=== PATIENT | female | born 1965 | race Caucasian/White ===

== ENCOUNTER 2018-06-26 | Observation (INO) | payer OTHER ==
[2018-06-26 00:26] VITALS: BMI 26.2
[2018-06-26] MEDS ORDERED: SODIUM CHLORIDE 0.9% 500 ML INFUS.BAG IV ONE (01:35)
[2018-06-26] MEDS ORDERED: ACETAMINOPHEN 1000 MG/100 ML VIAL (NON FORMULARY) IVPB ONE (01:35)
[2018-06-26] MEDS ORDERED: ONDANSETRON 4 MG/2 ML VIAL IVPUSH ONE (01:35)
--- NOTE | 2018-06-26 01:36 | PDOC ---
History of Present Illness <Christopher Banks - Last Filed: 06/26/18 07:09> - General History Source: Patient Exam Limitations: No Limitations - History of Present Illness Initial Comments: 06/26/18 01:36 This is a 53 YOF with h/o appendectomy who p/w 3 days intermittent epigastric pain worse with eating and radiating to her back, as well as full-body aches. The pain worsens with eating and she has lost her appetite over the past day. She additionally began having NBNB vomiting over the past day and has had 3-5 episodes. She denies f/c, d/c, black/bloody/white stool, dysuria, hematuria, vaginal bleeding or discharge, or other symptoms. She denies ever having her gallbladder surgically removed. <Mary Leggett - Last Filed: 06/28/18 17:49> - General Chief Complaint: Pain, Acute Stated Complaint: ABD PAIN Time Seen by Provider: 06/26/18 01:24 Past History <Christopher Banks - Last Filed: 06/26/18 07:09> - Past Medical History COPD: No Thyroid Disease: No - Suicide/Smoking/Psychosocial Hx Smoking History: Never smoked Have you smoked in the past 12 months: No Information on smoking cessation initiated: No Hx Alcohol Use: No Drug/Substance Use Hx: No Substance Use Type: None <Mary Leggett - Last Filed: 06/28/18 17:49> - Past Medical History Allergies/Adverse Reactions: Allergies Allergy/AdvReac Type Severity Reaction Status Date / Time No Known Allergies Allergy Verified 06/26/18 00:25 Home Medications: Ambulatory Orders NK [No Known Home Medication] 06/26/18 Review of Systems - Review of Systems Able to Perform ROS?: Yes Constitutional: Yes: Malaise. No: Chills, Fever, Unexplained wgt Loss HEENTM: No: Nose Congestion, Throat Pain Respiratory: No: Cough, Shortness of Breath Cardiac (ROS): No: Chest Pain, Palpitations ABD/GI: Yes: Nausea, Poor Appetite, Vomiting, Other (abdominal pain). No: Constipated, Diarrhea : No: Burning, Dysuria Musculoskeletal: Yes: Back Pain. No: Neck Pain Integumentary: No: Bruising, Rash Neurological: No: Headache, Numbness, Tingling, Weakness, Dizziness Endocrine: No: Unexplained Weight Gain, Unexplained Weight Loss <Mary Leggett - Last Filed: 06/28/18 17:49> *Physical Exam - Vital Signs Last Vital Signs Temp Pulse Resp BP Pulse Ox 97.9 F 72 20 147/75 100 06/26/18 00:25 06/26/18 00:25 06/26/18 00:06/26/18 00:06/26/18 00:25 <Christopher Banks - Last Filed: 06/26/18 07:09> - Vital Signs Last Vital Signs Temp Pulse Resp BP Pulse Ox 97.9 F 72 20 147/75 100 06/26/18 00:25 06/26/18 00:06/26/18 00:06/26/18 00:25 06/26/18 00:25 - Physical Exam General Appearance: Yes: Nourished, Appropriately Dressed, Other (a bit uncomfortable appearing, Mohawk speaking and answers questions appropriately, initially actively vomiting and dry heaving just prior to my examination). No: Apparent Distress HEENT: positive: EOMI, TRISTIAN, Normal ENT Inspection, Normal Voice, Hearing Grossly Normal. negative: Scleral Icterus (R), Scleral Icterus (L), Nasal Congestion Neck: positive: Trachea midline, Supple. negative: Tender, Rigid Respiratory/Chest: positive: Lungs Clear, Normal Breath Sounds. negative: Chest Tender, Respiratory Distress, Crackles, Rhonchi, Stridor, Wheezing Cardiovascular: positive: Regular Rhythm, Regular Rate, S1, S2. negative: Edema , JVD, Murmur Gastrointestinal/Abdominal: positive: Normal Bowel Sounds, Tender (mild epigastric ttp, no additional abdominal ttp, negative Farfan's, no ttp McBurney' s point), Soft, Other (laparoscopy scars present which are old and well-healed) . negative: Organomegaly, Pulsatile Mass, Guarding Musculoskeletal: positive: Normal Inspection. negative: Decreased Range of Motion, Vertebral Tenderness Extremity: positive: Normal Capillary Refill, Normal Inspection, Normal Range of Motion. negative: Tender, Cyanosis Integumentary: positive: Normal Color, Dry, Warm. 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 negative: EOM Palsy, Facial Droop, Numbness, Sensory Deficit, Confused, Disoriented <Mary Leggett - Last Filed: 06/28/18 17:49> Heart Score/ECG Review #1 06/26/18 01:45 Sinus rhythm, rate of 79, normal axis and intervals, no ischemic ST-T changes <Mary Leggett - Last Filed: 06/28/18 17:49> ED Treatment Course - LABORATORY CBC & Chemistry Diagram: 06/26/18 02:05 06/26/18 02:05 - ADDITIONAL ORDERS Additional order review: 06/26/18 02:05 RBC 4.75 MCV 84.4 MCHC 34.8 RDW 13.0 MPV 7.1 L Neutrophils % 77.5 Lymphocytes % 15.2 Monocytes % 6.4 Eosinophils % 0.3 Basophils % 0.6 - RADIOLOGY Radiograph Interpretation: 06/26/18 02:37 EXAM: ULTRASOUND ABDOMEN INCOMPLETE Unremarkable liver, right kidney and visualized aorta and pancreas. Cholecystectomy. Normal common duct diameter, 7 mm. Read by: Carley Munoz M.D. 06/26/18 07:10 EXAM: CT ABDOMEN AND PELVIS WITH CONTRAST Endometrial stripe thickness 8 mm, correlate with menopausal status. Leiomyomatous uterus. No bowel obstruction, colitis, diverticulitis, free fluid or free air. Normal appendix. Unremarkable pancreas and kidneys. Cholecystectomy. Read by: Carley Munoz M.D. - Medications Given in the ED: ED Medications Discontinued Medications Generic Name Dose Route Start Last Admin Trade Name Cecilia PRN Reason Stop Dose Admin Acetaminophen 1,000 mg 06/26/18 01:35 06/26/18 02:00 Ofirmev Injection - IVPB 06/26/18 01:36 1,000 mg ONCE ONE Administration Ondansetron HCl 8 mg 06/26/18 01:35 06/26/18 02:00 Zofran Injection IVPUSH 06/26/18 01:36 8 mg ONCE ONE Administration Sodium Chloride 1,000 ml 06/26/18 01:35 06/26/18 02:00 Normal Saline - IV 06/26/18 01:36 1,000 ml ONCE ONE Administration <Christopher Banks - Last Filed: 06/26/18 07:09> - LABORATORY CBC & Chemistry Diagram: 06/27/18 07:00 06/27/18 07:00 <Mary Leggett - Last Filed: 06/28/18 17:49> Medical Decision Making - Medical Decision Making Adult Pt p/w epigastric abdominal pain. Initial Vital Signs Temp Pulse Resp BP Pulse Ox 97.9 F 72 20 147/75 100 06/26/18 00:25 06/26/18 00:25 06/26/18 00:25 06/26/18 00:25 06/26/18 00:25 Exam: As noted in Physical Exam section. DDX IBNLT: cholecystitis, choledocholithiasis, cholangitis, pancreatitis, appendicitis, gastritis, PUD, colitis, AAA/AD, ACS, renal stone, SBO, mesenteric /bowel ischemia, bowel perforation, constipation, gas, etc W/U ordered: CBCD CMP ipase Troponin EKG RUQ US UA UCx TX ordered: [facility] [place] [facility] Zofran IVF EKG: Reviewed; results as noted in ECG Review section. US/ABDOMEN US -LIMITED HISTORY PROVIDED: Epigastric pain. Real time examination of the abdomen demonstrates the following: The gallbladder has been removed. There is no evidence of intra or extrahepatic biliary duct dilatation. The liver is normal in size and texture with no intrahepatic masses seen. Hepatopedal flow is documented within the main portal vein. The pancreas is normal in size and texture with no pancreatic masses identified. The tail of the pancreas was not well visualized due to overlying bowel gas. There is no evidence of hydronephrosis or acute abnormalities of the right kidney. There is no evidence of AAA. The IVC is patent. IMPRESSION: S/P cholecystectomy, otherwise normal abdominal sonogram. Laboratory Tests 06/26/18 06/26/18 06/26/18 02:05 02:05 02:05 WBC 10.2 H RBC 4.75 Hgb 13.9 Hct 40.1 MCV 84.4 MCH 29.4 MCHC 34.8 RDW 13.0 Plt Count 290 MPV 7.1 L Absolute Neuts (auto) 7.9 Neutrophils % 77.5 Lymphocytes % 15.2 Monocytes % 6.4 Eosinophils % 0.3 Basophils % 0.6 Nucleated RBC % 0 PT with INR 11.90 INR 1.05 Sodium 141 Potassium 3.7 Chloride 106 Carbon Dioxide 27 Anion Gap 8 BUN 7 Creatinine 0.7 Creat Clearance w eGFR > 60 Random Glucose 147 H Calcium 9.2 Total Bilirubin 1.4 H AST 524 H ALT 364 H Alkaline Phosphatase 184 H Troponin I < 0.02 Total Protein 7.6 Albumin 3.8 Lipase 127 Blood Type Antibody Screen 06/26/18 02:05 WBC RBC Hgb Hct MCV MCH MCHC RDW Plt Count MPV Absolute Neuts (auto) Neutrophils % Lymphocytes % Monocytes % Eosinophils % Basophils % Nucleated RBC % PT with INR INR Sodium Potassium Chloride Carbon Dioxide Anion Gap BUN Creatinine Creat Clearance w eGFR Random Glucose Calcium Total Bilirubin AST ALT Alkaline Phosphatase Troponin I Total Protein Albumin Lipase Blood Type O POSITIVE Antibody Screen Negative Reassessment: Patient states pain improved but still residual. Repeat exam with mild epigastric ttp without guarding/rebound. 06/26/18 05:[address] availability for CT A/P with IV contrast. CT/ABDOMEN PELVIS CT WITH CONTR HISTORY PROVIDED: Abdominal pain, elevated liver function tests. Sequential axial images were obtained from the domes of the diaphragms through the symphysis pubis following the administration of intravenous contrast material. The lung bases are clear. The liver, spleen, pancreas, adrenal glands and kidneys demonstrate no significant abnormalities. The gallbladder has been removed. There is no evidence of intra-abdominal or retroperitoneal lymphadenopathy or fluid collections. There is no evidence of pneumoperitoneum, bowel obstruction or intra-abdominal abscess. There is no CT evidence of acute appendicitis or diverticulitis. Examination of the pelvis demonstrates no evidence of pelvic masses, fluid collections or lymphadenopathy. The uterus is retroverted and bulky in appearance consistent with leiomyomata. There is also mild prominence of the endometrium. A follow-up pelvic sonogram may be warranted, if clinically indicated. There is no evidence of acute bony abnormalities. IMPRESSION: Fibroid uterus with prominent endometrium, otherwise normal CT scan of the abdomen and pelvis with no evidence of acute pathology. Please see above discussion. 06/26/18 07:37 The Pt is unsafe for discharge at this time. They require further hospital observation, workup, and treatment. Microblog sent to [facility] for admission. Spoke with Diaz Jacobo, in agreement Pt to be placed in Obs M/S. Decision to Admit order placed to admitting team covering attending Dr. Nguyen. <Mary Leggett - Last Filed: 06/28/18 17:49> *DC/Admit/Observation/Transfer - Attestations Scribe Attestion: 06/26/18 02:37 Documentation prepared by Christopher Banks, acting as medical assistant cardiology for Nicolas De La Fuente MD. <Christopher Banks - Last Filed: 06/26/18 07:09> - Discharge Dispostion Decision to Admit order: Yes <Oleksandr - Last Filed: 06/28/18 17:49> Diagnosis at time of Disposition: Transaminitis Abdominal pain Qualifiers: Abdominal location: unspecified location Qualified Code(s): R10.9 - Unspecified abdominal pain Vomiting Qualifiers: Vomiting type: unspecified Vomiting Intractability: non-intractable Nausea presence: with nausea Qualified Code(s): R11.2 - Nausea with vomiting, unspecified - Discharge Dispostion Disposition: HOME Condition at time of disposition: Stable
[2018-06-26] MEDS ORDERED: ACETAMINOPHEN INJECTION 100 ML IVPB ONE (01:46)
[2018-06-26] MEDS ORDERED: ONDANSETRON 4 MG/2 ML VIAL ONE (01:47)
[2018-06-26 02:19] LABS: BASO % 0.6 % (0-2.0); EOS % 0.3 % (0-4.5); HEMATOCRIT 40.1 % (32.4-45.2); HEMOGLOBIN 13.9 GM/dL (10.7-15.3); LYMPH % 15.2 % (8-40); MCH 29.4 pg (25.7-33.7); MCHC 34.8 g/dl (32.0-36.0); MEAN CELL VOLUME 84.4 fl (80-96); MEAN PLT VOLUME 7.1 fl (7.5-11.1); MONO % 6.4 % (3.8-10.2); NEUT % 77.5 % (42.8-82.8); PLATELET COUNT 290 K/MM3 (134-434); RBC 4.75 M/mm3 (3.60-5.2); WHITE BLOOD COUNT 10.2 K/mm3 (4.0-10.0)
[2018-06-26 02:32] LABS: INR 1.05 (0.83-1.09); PROTHROMBIN TIME (PATIENT) 11.9 SEC (9.7-13.0)
[2018-06-26] MEDS ORDERED: FAMOTIDINE 20 MG/50 ML IVPB 20 MG/50 ML MG IVPB ONE ×2 (02:40→05:06)
[2018-06-26] MEDS ORDERED: MAG HYDROX/AL HYDROX/SIMETH 30 ML UNIT-DOSE CUP PO ONE (02:41)
[2018-06-26 02:42] LABS: ALBUMIN 3.8 g/dl (3.4-5.0); ALK PHOS 184 U/L (45-117); ANION GAP 8 MMOL/L (8-16); BILIRUBIN,TOTAL 1.4 mg/dL (0.2-1); BLOOD UREA NITROGEN 7 mg/dL (7-18); CALCIUM 9.2 mg/dL (8.5-10.1); CHLORIDE 106 mmol/L (98-107); CO2 27 mmol/L (21-32); CREATININE 0.7 mg/dL (0.55-1.3); GLUCOSE,RANDOM 147 mg/dL (74-106); LIPASE 127 U/L (73-393); POTASSIUM 3.7 mmol/L (3.5-5.1); SGOT/AST 524 U/L (15-37); SGPT/ALT 364 U/L (13-61); SODIUM 141 mmol/L (136-145); TOT PROT 7.6 g/dl (6.4-8.2)
[2018-06-26] MEDS ORDERED: MAG HYDROX/AL HYDROX/SIMETH 30 ML UNIT-DOSE CUP ONE (02:49)
--- NOTE | 2018-06-26 04:42 | PDOC ---
Attending Attestation - Resident Resident Name: Mary Leggett - ED Attending Attestation I have performed the following: I have examined & evaluated the patient, The case was reviewed & discussed with the resident, I agree w/resident's findings & plan, Exceptions are as noted - HPI HPI: 06/26/18 04:37 The patient is a 53 year old female with hx appendectomy who presents to the emergency department with epigastric pain. She describes her pain as intermittent in nature radiating to her back worsening after eating with associated nausea, vomiting, and body aches. The patient also endorses decreased appetite over the past day. Denies heavy NSAID use or alcohol use. She denies recent fevers, chills, headache or dizziness. She denies recent diarrhea or constipation. She denies recent dysuria, frequency, urgency or hematuria. She denies recent chest pain or shortness of breath. Allergies: NKA - Physicial Exam PE: 06/26/18 04:36 agree with resident exam - Medical Decision Making 06/26/18 04:38 53yo F with reported hx of appendectomy (although US with surgically absent gallbladder) presents with epigastric pain. BP mildly elevated, likely 2/2 pain. Exam with epigastric and RUQ ttp. DDx includes but not limited to retained stone vs pancreatitis vs gastritis vs appendicitis. Plan -US -labs -CTAP if US neg -reassess <Nicolas De La Fuente - Last Filed: 06/26/18 04:36> Attestations - Attestations 06/26/18 06:02 Documentation prepared by Christopher Banks, acting as medical assistant for Nicolas De La Fuente MD. <Christopher Banks - Last Filed: 06/26/18 06:02>
[2018-06-26] MEDS ORDERED: ACETAMINOPHEN 325 MG TABLET (FP) PO PRN (08:06)
[2018-06-26] MEDS ORDERED: ONDANSETRON 4 MG/2 ML VIAL IVPUSH PRN (08:06)
--- NOTE | 2018-06-26 08:06 | HP ---
CHIEF COMPLAINT:Abdominal pain PCP:None HISTORY OF PRESENT ILLNESS: 53F denies PMH presents to the hospital with a 1 week history of intermittent abdominal pain. She states the pain was minor for the first few days and she mostly ignored it up until about 3 days ago when her pain started to become more severe. She endorses that the pain is waxing and waning in nature. She states the pain was then accompanied with nausea then vomiting about 3 times yesterday. She states the vomitus had undigested food and didn't have any blood or bile in it. She endorses some back pain but otherwise denies nausea vomiting fever chills chest pain leg swelling or shortness of breath. She denies urinary symptoms. Patient thought she still had her gall bladder and had her appendix taken out but imaging shows the opposite. Patient actually still has her appendix and had a cholecystectomy laparoscopically. Patient does not follow with a primary care doctor. Currently the abdominal pain and the vomiting have resolved and patient is hungry and is asking for food. LFTs found to be elevated. ER course was notable for: (1)Labs (2)IVF (3)US CTAP Recent Travel:Denies PAST MEDICAL HISTORY:Denies PAST SURGICAL HISTORY:laparoscopic choloecystectomy Social History: Smoking:Denies Alcohol:Denies Drugs: Denies Allergies No Known Allergies Allergy (Verified 06/26/18 00:25) HOME MEDICATIONS: Home Medications Medication Instructions Recorded NK [No Known Home Medication] 06/26/18 REVIEW OF SYSTEMS CONSTITUTIONAL: Absent: fever, chills, diaphoresis, generalized weakness, malaise, weight change Present: loss of appetite HEENT: Absent: rhinorrhea, nasal congestion, throat pain, throat swelling, difficulty swallowing, mouth swelling, ear pain, eye pain, visual changes CARDIOVASCULAR: Absent: chest pain, syncope, palpitations, irregular heart rate, lightheadedness , peripheral edema RESPIRATORY: Absent: cough, shortness of breath, dyspnea with exertion, orthopnea, wheezing, stridor, hemoptysis GASTROINTESTINAL: Absent: abdominal distension, diarrhea, constipation, melena, hematochezia Present:abdominal pain, nausea, vomiting GENITOURINARY: Absent: dysuria, frequency, urgency, hesitancy, hematuria, flank pain, genital pain MUSCULOSKELETAL: Absent: myalgia, arthralgia, joint swelling, back pain, neck pain SKIN: Absent: rash, itching, pallor HEMATOLOGIC/IMMUNOLOGIC: Absent: easy bleeding, easy bruising, lymphadenopathy, frequent infections ENDOCRINE: Absent: unexplained weight gain, unexplained weight loss, heat intolerance, cold intolerance NEUROLOGIC: Absent: headache, focal weakness or paresthesias, dizziness, unsteady gait, seizure, mental status changes, bladder or bowel incontinence PSYCHIATRIC: Absent: anxiety, depression, suicidal or homicidal ideation, hallucinations. PHYSICAL EXAMINATION Vital Signs - 24 hr 06/26/18 06/26/18 06/26/18 00:25 05:35 05:38 Temperature 97.9 F 97.9 F 99.1 F Pulse Rate 72 Pulse Rate [ 62 82 Left Radial] Respiratory 20 14 17 Rate Blood Pressure 147/75 Blood Pressure 132/62 143/78 [Right Arm] O2 Sat by Pulse 100 96 98 Oximetry (%) GENERAL: Awake, alert, and fully oriented, in no acute distress. HEAD: Normal with no signs of trauma. EYES: Pupils equal, round and reactive to light, extraocular movements intact EARS, NOSE, THROAT:Dry mucous membranes. LUNGS: Breath sounds equal, clear to auscultation bilaterally. No wheezes, and no crackles. No accessory muscle use. HEART: Regular rate and rhythm, normal S1 and S2 3/6 systolic murmur best heard at RUSB ABDOMEN: Soft,not distended, normoactive bowel sounds, no guarding, no rebound. Slightly tender in epigastrium. MUSCULOSKELETAL: Normal range of motion at all joints. No bony deformities or tenderness. No CVA tenderness. UPPER EXTREMITIES: warm, well-perfused. No cyanosis. No clubbing. No peripheral edema. LOWER EXTREMITIES: warm, well-perfused. No calf tenderness. No peripheral edema. NEUROLOGICAL: Cranial nerves II-XII intact. Normal speech. PSYCHIATRIC: Cooperative. Good eye contact. Appropriate mood and affect. SKIN: Warm, dry Laboratory Results - last 24 hr 06/26/18 06/26/18 06/26/18 02:05 02:05 02:05 WBC 10.2 H RBC 4.75 Hgb 13.9 Hct 40.1 MCV 84.4 MCH 29.4 MCHC 34.8 RDW 13.0 Plt Count 290 MPV 7.1 L Absolute Neuts (auto) 7.9 Neutrophils % 77.5 Lymphocytes % 15.2 Monocytes % 6.4 Eosinophils % 0.3 Basophils % 0.6 Nucleated RBC % 0 PT with INR 11.90 INR 1.05 Sodium 141 Potassium 3.7 Chloride 106 Carbon Dioxide 27 Anion Gap 8 BUN 7 Creatinine 0.7 Creat Clearance w eGFR > 60 Random Glucose 147 H Calcium 9.2 Total Bilirubin 1.4 H AST 524 H ALT 364 H Alkaline Phosphatase 184 H Troponin I < 0.02 Total Protein 7.6 Albumin 3.8 Lipase 127 Blood Type Antibody Screen 06/26/18 02:05 WBC RBC Hgb Hct MCV MCH MCHC RDW Plt Count MPV Absolute Neuts (auto) Neutrophils % Lymphocytes % Monocytes % Eosinophils % Basophils % Nucleated RBC % PT with INR INR Sodium Potassium Chloride Carbon Dioxide Anion Gap BUN Creatinine Creat Clearance w eGFR Random Glucose Calcium Total Bilirubin AST ALT Alkaline Phosphatase Troponin I Total Protein Albumin Lipase Blood Type O POSITIVE Antibody Screen Negative ABD US: s/p cholecystectomy otherwise normal US CTAP: no acute pathology. Fibroid uterus ASSESSMENT/PLAN: 53F with no PMH presents to the ED with nausea vomiting and abdominal pain found to have elevated LFTs. abdominal pain with nausea and vomiting with transamintitis: Lipase WNL. Pancreas WNL on CTAP. It is possible patient had choledocholithiasis and had passed the stone. Also possible patient can have an acute viral hepatitis. Could be PUD or gastritis as well. Place on observation trend LFTs Get acute hepatitis panel CTAP noted ABD US noted GI consulted by ER Antiemetics clear diet for now as patient is asking for food and does not have any symptoms at this time IVF Hyperglycemia: could be reactive but patient does not follow with a PMD Will check HbA1C to r/o diabetes FEN: NS @ 100ml/hr no electrolyte issues CLD PPx: SCD/HSQ PPI Case discussed with Dr. Nguyen Visit type - Emergency Visit Emergency Visit: Yes ED Registration Date: 06/26/18 Care time: The patient presented to the Emergency Department on the above date and was hospitalized for further evaluation of their emergent condition. - New Patient This patient is new to me today: Yes Date on this admission: 06/26/18 - Critical Care Critical Care patient: No Hospitalist Screening - Colonoscopy Questionnaire Colonoscopy Questionnaire: Colonoscopy Questionnaire - Patient: 50 - 75 years old and never had a screening colonoscopy: Yes History of colon or rectal polyps, or CA: No History of IBD, Crohn's disease or UC: No History of abdominal radiation therapy as a child: No - Relative: 1 with colon or rectal CA, or polyps at age 60 or younger: No Colon or rectal CA diagnosed at age 45 or younger: No Multiple relatives with colon or rectal CA: No - Outcome: Screening Result: Positive Screen
[2018-06-26] MEDS: SODIUM CHLORIDE 1,000 ML IV SCH ×2 (08:21→20:14)
[2018-06-26 08:46] LABS: URINE APPEARANCE CLEAR; URINE BILIRUBIN NEGATIVE (<2.0 mg/dL); URINE COLOR LTYELLOW; URINE GLUCOSE (UA) NEGATIVE (NEGATIVE); URINE KETONE NEGATIVE (NEGATIVE); URINE LEUK ESTERASE TRACE (NEGATIVE); URINE NITRITE NEGATIVE (NEGATIVE); URINE PROTEIN NEGATIVE (NEGATIVE); URINE UROBILINOGEN NEGATIVE mg/dL (0.2-1.0)
[2018-06-26 09:30] LABS: EPI CELLS FEW /HPF (FEW); URINE MUCUS RARE
--- NOTE | 2018-06-26 10:09 | PN ---
Teaching Attending Note Name of Resident: Diaz Jacobo ATTENDING PHYSICIAN STATEMENT I saw and evaluated the patient. I reviewed the resident's note and discussed the case with the resident. I agree with the resident's findings and plan as documented. SUBJECTIVE: This is a 53 year old woman with a history of cholecystectomy who comes to the ED complaining of abdominal pain on and off x 1 week. Yesterday, she developed nausea and vomiting. She denies fever, chills, hematemesis, melena , rectal bleeding. OBJECTIVE: Vital Signs Period Temp Pulse Resp BP Sys/Arnold Pulse Ox Last 24 Hr 97.9 F-99.1 F 62-82 14-20 106-147/56-78 96-100 HEART: S1S2, RRR LUNGS: Clear ABDOMEN: Soft, non-distended, mild epigastric tenderness, normal BS EXTREMITIES: No edema Laboratory Results - last 24 hr 06/26/18 06/26/18 06/26/18 02:05 02:05 02:05 WBC 10.2 H RBC 4.75 Hgb 13.9 Hct 40.1 MCV 84.4 MCH 29.4 MCHC 34.8 RDW 13.0 Plt Count 290 MPV 7.1 L Absolute Neuts (auto) 7.9 Neutrophils % 77.5 Lymphocytes % 15.2 Monocytes % 6.4 Eosinophils % 0.3 Basophils % 0.6 Nucleated RBC % 0 PT with INR 11.90 INR 1.05 Sodium 141 Potassium 3.7 Chloride 106 Carbon Dioxide 27 Anion Gap 8 BUN 7 Creatinine 0.7 Creat Clearance w eGFR > 60 Random Glucose 147 H Hemoglobin A1c % Calcium 9.2 Total Bilirubin 1.4 H AST 524 H ALT 364 H Alkaline Phosphatase 184 H Troponin I < 0.02 Total Protein 7.6 Albumin 3.8 Lipase 127 Urine Color Urine Appearance Urine pH Ur Specific [place] Urine Protein Urine Glucose (UA) Urine Ketones Urine Blood Urine Nitrite Urine Bilirubin Urine Urobilinogen Ur Leukocyte Esterase Urine WBC (Auto) Urine RBC (Auto) Ur Epithelial Cells Urine Mucus Blood Type Antibody Screen 06/26/18 06/26/18 06/26/18 02:05 08:35 08:40 WBC RBC Hgb Hct MCV MCH MCHC RDW Plt Count MPV Absolute Neuts (auto) Neutrophils % Lymphocytes % Monocytes % Eosinophils % Basophils % Nucleated RBC % PT with INR INR Sodium Potassium Chloride Carbon Dioxide Anion Gap BUN Creatinine Creat Clearance w eGFR Random Glucose Hemoglobin A1c % 5.6 Calcium Total Bilirubin AST ALT Alkaline Phosphatase Troponin I Total Protein Albumin Lipase Urine Color Ltyellow Urine Appearance Clear Urine pH 7.0 Ur Specific [place] 1.047 H Urine Protein Negative Urine Glucose (UA) Negative Urine Ketones Negative Urine Blood 1+ H Urine Nitrite Negative Urine Bilirubin Negative Urine Urobilinogen Negative Ur Leukocyte Esterase Trace Urine WBC (Auto) 9 Urine RBC (Auto) 6 Ur Epithelial Cells Few Urine Mucus Rare Blood Type O POSITIVE Antibody Screen Negative Home Medications Medication Instructions Recorded NK [No Known Home Medication] 06/26/18 ASSESSMENT AND PLAN: This is a 53 year old woman with a history of cholecystectomy who presented to the ED with epigastric pain, nausea and vomiting. 1. Epigastric abdominal pain with nausea, vomiting, hepatic transaminitis, elevated total bili and alk phos - No evidence of pancreatitis, biliary ductal dilatation - Clear liquids - IV fluid - Protonix - Zofran as needed - Check hepatitis panel - Monitor LFTs
[2018-06-26] MEDS: HEPARIN NA (PORCINE) 5,000 UNITS/ML 1ML VIAL SQ SCH ×3 (10:20→21:27)
[2018-06-26] MEDS: PANTOPRAZOLE SODIUM 40 MG VIAL IVPUSH SCH (11:56)
--- NOTE | 2018-06-26 12:46 | CON.GI ---
Consult Reason for Consultation:: Abdominal pain - History of Present Illness History of Present Illness: Chart reviewed. ED assesment noted. Per initial intake earlier to day: 53F denies PMH presents to the hospital with a 1 week history of intermittent abdominal pain. She states the pain was minor for the first few days and she mostly ignored it up until about 3 days ago when her pain started to become more severe. She endorses that the pain is waxing and waning in nature. She states the pain was then accompanied with nausea then vomiting about 3 times yesterday. She states the vomitus had undigested food and didn't have any blood or bile in it. She endorses some back pain but otherwise denies nausea vomiting fever chills chest pain leg swelling or shortness of breath. She denies urinary symptoms. Patient thought she still had her gall bladder and had her appendix taken out but imaging shows the opposite. Patient actually still has her appendix and had a cholecystectomy laparoscopically. Patient does not follow with a primary care doctor. Currently the abdominal pain and the vomiting have resolved and patient is hungry and is asking for food. LFTs found to be elevated. The history obtained with help of [employer] pewter finisher Brigida #[id number]. Onset of the epigastric pain - 3-4 day ago with worsening over the last 24 hrs. No identifiable prodromal events, or triggers. Not associated with dysphagia, odynophagia, nausea, vomiting, diarrhea, jaundice, or fever. No weight loss, joint, skin, back, eye symptoms. No ill contacts, travel, or exposure to ill. No chronic ETOZH, NSAIDs. No new medications. Have not seen a doctor for years. No prior episodes of the same. No known/documented history of liver, pancrease, or gall bladder problems. Abnormal Lab Results 06/26/18 06/26/18 06/26/18 02:05 02:05 08:35 WBC 10.2 H MPV 7.1 L Random Glucose 147 H Total Bilirubin 1.4 H AST 524 H ALT 364 H Alkaline Phosphatase 184 H Ur Specific [place] 1.047 H Urine Blood 1+ H CBCD WBC 10.2 K/mm3 (4.0-10.0) H 06/26/18 02:05 RBC 4.75 M/mm3 (3.60-5.2) 06/26/18 02:05 Hgb 13.9 GM/dL (10.7-15.3) 06/26/18 02:05 Hct 40.1 % (32.4-45.2) 06/26/18 02:05 MCV 84.4 fl (80-96) 06/26/18 02:05 MCHC 34.8 g/dl (32.0-36.0) 06/26/18 02:05 RDW 13.0 % (11.6-15.6) 06/26/18 02:05 Plt Count 290 K/MM3 (134-434) 06/26/18 02:05 MPV 7.1 fl (7.5-11.1) L 06/26/18 02:05 CMP Sodium 141 mmol/L (136-145) 06/26/18 02:05 Potassium 3.7 mmol/L (3.5-5.1) 06/26/18 02:05 Chloride 106 mmol/L (98-107) 06/26/18 02:05 Carbon Dioxide 27 mmol/L (21-32) 06/26/18 02:05 Anion Gap 8 MMOL/L (8-16) 06/26/18 02:05 BUN 7 mg/dL (7-18) 06/26/18 02:05 Creatinine 0.7 mg/dL (0.55-1.3) 06/26/18 02:05 Creat Clearance w eGFR > 60 (>60) 06/26/18 02:05 Calcium 9.2 mg/dL (8.5-10.1) 06/26/18 02:05 Total Bilirubin 1.4 mg/dL (0.2-1) H 06/26/18 02:05 AST 524 U/L (15-37) H 06/26/18 02:05 ALT 364 U/L (13-61) H 06/26/18 02:05 Alkaline Phosphatase 184 U/L (45-117) H 06/26/18 02:05 Total Protein 7.6 g/dl (6.4-8.2) 06/26/18 02:05 Albumin 3.8 g/dl (3.4-5.0) 06/26/18 02:05 [id number] CT/ABDOMEN & PELVIS CT WITH CONTR HISTORY PROVIDED: Abdominal pain, elevated liver function tests. Sequential axial images were obtained from the domes of the diaphragms through the symphysis pubis following the administration of intravenous contrast material. The lung bases are clear. The liver, spleen, pancreas, adrenal glands and kidneys demonstrate no significant abnormalities. The gallbladder has been removed. There is no evidence of intra- abdominal or retroperitoneal lymphadenopathy or fluid collections. There is no evidence of pneumoperitoneum, bowel obstruction or intra-abdominal abscess. There is no CT evidence of acute appendicitis or diverticulitis. Examination of the pelvis demonstrates no evidence of pelvic masses, fluid collections or lymphadenopathy. The uterus is retroverted and bulky in appearance consistent with leiomyomata. There is also mild prominence of the endometrium. A follow-up pelvic sonogram may be warranted, if clinically indicated. There is no evidence of acute bony abnormalities. IMPRESSION: Fibroid uterus with prominent endometrium, otherwise normal CT scan of the abdomen and pelvis with no evidence of acute pathology. Please see above discussion. Reported By: Aaron Solorio MD 06/26/18 0904 [id number] US/ABDOMEN US -LIMITED HISTORY PROVIDED: Epigastric pain. Real time examination of the abdomen demonstrates the following: The gallbladder has been removed. There is no evidence of intra or extrahepatic biliary duct dilatation. The liver is normal in size and texture with no intrahepatic masses seen. Hepatopedal flow is documented within the main portal vein. The pancreas is normal in size and texture with no pancreatic masses identified. The tail of the pancreas was not well visualized due to overlying bowel gas. There is no evidence of hydronephrosis or acute abnormalities of the right kidney. There is no evidence of AAA. The IVC is patent. IMPRESSION: S/P cholecystectomy, otherwise normal abdominal sonogram. - History Source History Provided By: Patient, Medical Record, Caregiver - Alcohol/Substance Use Hx Alcohol Use: No - Smoking History Smoking history: Never smoked Have you smoked in the past 12 months: No Home Medications - Allergies Allergies/Adverse Reactions: Allergies Allergy/AdvReac Type Severity Reaction Status Date / Time No Known Allergies Allergy Verified 06/26/18 00:25 - Home Medications Home Medications: Ambulatory Orders NK [No Known Home Medication] 06/26/18 Family Disease History - Family Disease History Family History: Unremarkable Review of Systems Findings/Remarks: as per HPI, ED, H&P Physical Exam-GI Vital Signs: Vital Signs Temperature 98.4 F 06/26/18 08:36 Pulse Rate 68 06/26/18 08:36 Respiratory Rate 16 06/26/18 08:36 Blood Pressure 106/56 06/26/18 08:36 O2 Sat by Pulse Oximetry (%) 98 06/26/18 08:36 Labs: CBC, BMP 06/26/18 02:05 06/26/18 02:05 INR, PTT INR 1.05 (0.83-1.09) 06/26/18 02:05 Laboratory Tests 06/26/18 06/26/18 06/26/18 02:05 02:05 02:05 WBC 10.2 H RBC 4.75 Hgb 13.9 Hct 40.1 MCV 84.4 MCH 29.4 MCHC 34.8 RDW 13.0 Plt Count 290 MPV 7.1 L Absolute Neuts (auto) 7.9 Neutrophils % 77.5 Lymphocytes % 15.2 Monocytes % 6.4 Eosinophils % 0.3 Basophils % 0.6 Nucleated RBC % 0 PT with INR 11.90 INR 1.05 Sodium 141 Potassium 3.7 Chloride 106 Carbon Dioxide 27 Anion Gap 8 BUN 7 Creatinine 0.7 Creat Clearance w eGFR > 60 Random Glucose 147 H Hemoglobin A1c % Calcium 9.2 Total Bilirubin 1.4 H AST 524 H ALT 364 H Alkaline Phosphatase 184 H Troponin I < 0.02 Total Protein 7.6 Albumin 3.8 Lipase 127 Urine Color Urine Appearance Urine pH Ur Specific [place] Urine Protein Urine Glucose (UA) Urine Ketones Urine Blood Urine Nitrite Urine Bilirubin Urine Urobilinogen Ur Leukocyte Esterase Urine WBC (Auto) Urine RBC (Auto) Ur Epithelial Cells Urine Mucus Blood Type Antibody Screen 06/26/18 06/26/18 06/26/18 02:05 08:35 08:40 WBC RBC Hgb Hct MCV MCH MCHC RDW Plt Count MPV Absolute Neuts (auto) Neutrophils % Lymphocytes % Monocytes % Eosinophils % Basophils % Nucleated RBC % PT with INR INR Sodium Potassium Chloride Carbon Dioxide Anion Gap BUN Creatinine Creat Clearance w eGFR Random Glucose Hemoglobin A1c % 5.6 Calcium Total Bilirubin AST ALT Alkaline Phosphatase Troponin I Total Protein Albumin Lipase Urine Color Ltyellow Urine Appearance Clear Urine pH 7.0 Ur Specific [place] 1.047 H Urine Protein Negative Urine Glucose (UA) Negative Urine Ketones Negative Urine Blood 1+ H Urine Nitrite Negative Urine Bilirubin Negative Urine Urobilinogen Negative Ur Leukocyte Esterase Trace Urine WBC (Auto) 9 Urine RBC (Auto) 6 Ur Epithelial Cells Few Urine Mucus Rare Blood Type O POSITIVE Antibody Screen Negative 06/26/18 09:46 WBC RBC Hgb Hct MCV MCH MCHC RDW Plt Count MPV Absolute Neuts (auto) Neutrophils % Lymphocytes % Monocytes % Eosinophils % Basophils % Nucleated RBC % PT with INR INR Sodium Potassium Chloride Carbon Dioxide Anion Gap BUN Creatinine Creat Clearance w eGFR Random Glucose Hemoglobin A1c % Calcium Total Bilirubin AST ALT Alkaline Phosphatase Troponin I Total Protein Albumin Lipase Urine Color Urine Appearance Urine pH Ur Specific [place] Urine Protein Urine Glucose (UA) Urine Ketones Urine Blood Urine Nitrite Urine Bilirubin Urine Urobilinogen Ur Leukocyte Esterase Urine WBC (Auto) Urine RBC (Auto) Ur Epithelial Cells Urine Mucus Blood Type O POSITIVE Antibody Screen Imaging - Results Cat Scan: Report Reviewed Ultrasound: Report Reviewed Problem List - Problems (1) Nausea Code(s): R11.0 - NAUSEA (2) Abdominal pain Code(s): R10.9 - UNSPECIFIED ABDOMINAL PAIN Qualifiers: Abdominal location: unspecified location Qualified Code(s): R10.9 - Unspecified abdominal pain (3) Transaminitis Code(s): R74.0 - NONSPEC ELEV OF LEVELS OF TRANSAMNS & LACTIC ACID DEHYDRGNSE (4) Vomiting Code(s): R11.10 - VOMITING, UNSPECIFIED Qualifiers: Vomiting type: unspecified Vomiting Intractability: non-intractable Nausea presence: with nausea Qualified Code(s): R11.2 - Nausea with vomiting, unspecified Assessment/Plan A 53F with mild leukocytosis, AST predominant hepatitis, cholestasis, abdominal pain with negative for acute intra-abdominal pathology imaging. Viral, autoimmune, genetic hepatitis work up. Daily liver enzymes, bili, ALP. Avoid NSAIDs, other hepatotoxic medications. Prior auth. from pathology obtained. HBV, HCV, HAV, KUNAL, AMA, ASMA, ALKM-1, Iron profile, ceruloplasmin, A1AT,
--- NOTE | 2018-06-26 13:37 | EKG ---
Test Reason : Blood Pressure : / mmHG Vent. Rate : 079 BPM Atrial Rate : 079 BPM P-R Int : 150 ms QRS Dur : 086 ms QT Int : 358 ms P-R-T Axes : 068 054 030 degrees QTc Int : 410 ms NORMAL SINUS RHYTHM WITH SINUS ARRHYTHMIA NORMAL ECG NO PREVIOUS ECGS AVAILABLE Confirmed by PAYTON CASILLAS MD ([id number]) on 06/26/2018 1:37:32 PM Referred By: Confirmed By:PAYTON CASILLAS MD
--- NOTE | 2018-06-26 14:38 | PN ---
Teaching Attending Note Name of Resident: Diaz Jacobo ATTENDING PHYSICIAN STATEMENT I saw and evaluated the patient. I reviewed the resident's note and discussed the case with the resident. I agree with the resident's findings and plan as documented. SUBJECTIVE: OBJECTIVE: Vital Signs Period Temp Pulse Resp BP Sys/Arnold Pulse Ox Last 24 Hr 97.9 F-99.1 F 62-97 14-20 106-149/56-87 96-100 Laboratory Results - last 24 hr 06/26/18 06/26/18 06/26/18 02:05 02:05 02:05 WBC 10.2 H RBC 4.75 Hgb 13.9 Hct 40.1 MCV 84.4 MCH 29.4 MCHC 34.8 RDW 13.0 Plt Count 290 MPV 7.1 L Absolute Neuts (auto) 7.9 Neutrophils % 77.5 Lymphocytes % 15.2 Monocytes % 6.4 Eosinophils % 0.3 Basophils % 0.6 Nucleated RBC % 0 PT with INR 11.90 INR 1.05 Sodium 141 Potassium 3.7 Chloride 106 Carbon Dioxide 27 Anion Gap 8 BUN 7 Creatinine 0.7 Creat Clearance w eGFR > 60 Random Glucose 147 H Hemoglobin A1c % Calcium 9.2 Total Bilirubin 1.4 H AST 524 H ALT 364 H Alkaline Phosphatase 184 H Troponin I < 0.02 Total Protein 7.6 Albumin 3.8 Lipase 127 Urine Color Urine Appearance Urine pH Ur Specific [place] Urine Protein Urine Glucose (UA) Urine Ketones Urine Blood Urine Nitrite Urine Bilirubin Urine Urobilinogen Ur Leukocyte Esterase Urine WBC (Auto) Urine RBC (Auto) Ur Epithelial Cells Urine Mucus Blood Type Antibody Screen 06/26/18 06/26/18 06/26/18 02:05 08:35 08:40 WBC RBC Hgb Hct MCV MCH MCHC RDW Plt Count MPV Absolute Neuts (auto) Neutrophils % Lymphocytes % Monocytes % Eosinophils % Basophils % Nucleated RBC % PT with INR INR Sodium Potassium Chloride Carbon Dioxide Anion Gap BUN Creatinine Creat Clearance w eGFR Random Glucose Hemoglobin A1c % 5.6 Calcium Total Bilirubin AST ALT Alkaline Phosphatase Troponin I Total Protein Albumin Lipase Urine Color Ltyellow Urine Appearance Clear Urine pH 7.0 Ur Specific [place] 1.047 H Urine Protein Negative Urine Glucose (UA) Negative Urine Ketones Negative Urine Blood 1+ H Urine Nitrite Negative Urine Bilirubin Negative Urine Urobilinogen Negative Ur Leukocyte Esterase Trace Urine WBC (Auto) 9 Urine RBC (Auto) 6 Ur Epithelial Cells Few Urine Mucus Rare Blood Type O POSITIVE Antibody Screen Negative 06/26/18 09:46 WBC RBC Hgb Hct MCV MCH MCHC RDW Plt Count MPV Absolute Neuts (auto) Neutrophils % Lymphocytes % Monocytes % Eosinophils % Basophils % Nucleated RBC % PT with INR INR Sodium Potassium Chloride Carbon Dioxide Anion Gap BUN Creatinine Creat Clearance w eGFR Random Glucose Hemoglobin A1c % Calcium Total Bilirubin AST ALT Alkaline Phosphatase Troponin I Total Protein Albumin Lipase Urine Color Urine Appearance Urine pH Ur Specific [place] Urine Protein Urine Glucose (UA) Urine Ketones Urine Blood Urine Nitrite Urine Bilirubin Urine Urobilinogen Ur Leukocyte Esterase Urine WBC (Auto) Urine RBC (Auto) Ur Epithelial Cells Urine Mucus Blood Type O POSITIVE Antibody Screen Home Medications Medication Instructions Recorded NK [No Known Home Medication] 06/26/18 ASSESSMENT AND PLAN:
[2018-06-26] MEDS: IBUPROFEN 400 MG TABLET (FP) PO PRN (14:40)
[2018-06-27] MEDS: IBUPROFEN 400 MG TABLET (FP) PO PRN (04:34)
[2018-06-27] MEDS: SODIUM CHLORIDE 1,000 ML IV SCH ×2 (04:34→09:44)
[2018-06-27] MEDS: HEPARIN NA (PORCINE) 5,000 UNITS/ML 1ML VIAL SQ SCH (05:35)
[2018-06-27 06:05] LABS: HEP.C VIRUS AB <0.1 s/co ratio (0.0-0.9)
[2018-06-27 07:56] LABS: BASO % 0.4 % (0-2.0); EOS % 2.4 % (0-4.5); HEMATOCRIT 37.1 % (32.4-45.2); HEMOGLOBIN 12.7 GM/dL (10.7-15.3); LYMPH % 16.5 % (8-40); MCH 29.1 pg (25.7-33.7); MCHC 34.2 g/dl (32.0-36.0); MEAN PLT VOLUME 7.1 fl (7.5-11.1); MONO % 7.8 % (3.8-10.2); NEUT % 72.9 % (42.8-82.8); PLATELET COUNT 239 K/MM3 (134-434); RBC 4.36 M/mm3 (3.60-5.2); RDW 12.8 % (11.6-15.6); WHITE BLOOD COUNT 8.9 K/mm3 (4.0-10.0)
[2018-06-27 08:50] LABS: ANION GAP 6 MMOL/L (8-16); BLOOD UREA NITROGEN 4 mg/dL (7-18); CALCIUM 8.6 mg/dL (8.5-10.1); CHLORIDE 108 mmol/L (98-107); CO2 28 mmol/L (21-32); CREATININE 0.4 mg/dL (0.55-1.3); GLUCOSE,RANDOM 102 mg/dL (74-106); MAGNESIUM 2.2 mg/dL (1.8-2.4); PHOSPHOROUS 2.8 mg/dL (2.5-4.9); SODIUM 142 mmol/L (136-145)
[2018-06-27 08:58] LABS: CHLORIDE 108 mmol/L (98-107); SODIUM 143 mmol/L (136-145)
[2018-06-27 09:05] LABS: INR 1.13 (0.83-1.09); PROTHROMBIN TIME (PATIENT) 12.8 SEC (9.7-13.0)
[2018-06-27 09:14] LABS: ALBUMIN 3.2 g/dl (3.4-5.0); ALK PHOS 227 U/L (45-117); ANION GAP 8 MMOL/L (8-16); BLOOD UREA NITROGEN 4 mg/dL (7-18); CALCIUM 8.7 mg/dL (8.5-10.1); CO2 27 mmol/L (21-32); CREATININE 0.4 mg/dL (0.55-1.3); GLUCOSE,RANDOM 100 mg/dL (74-106); SGOT/AST 260 U/L (15-37); SGPT/ALT 398 U/L (13-61); TOT PROT 6.3 g/dl (6.4-8.2)
[2018-06-27] MEDS: PANTOPRAZOLE SODIUM 40 MG VIAL IVPUSH SCH (09:44)
[2018-06-27 09:55] VITALS: BP 128/72; PULSE 82; TEMP 98.1
[2018-06-27 10:12] LABS: BILIRUBIN,DIRECT 0.3 mg/dL (0.0-0.2)
--- NOTE | 2018-06-27 10:19 | DS ---
Physical Exam: SUBJECTIVE: Patient seen and examined at bedside feels better today denies abdominal pain OBJECTIVE: Vital Signs Period Temp Pulse Resp BP Sys/Arnold Pulse Ox Last 24 Hr 98 F-99.3 F 78-98 18-20 124-149/62-87 97-98 PHYSICAL EXAM GENERAL: Awake, alert, and fully oriented, in no acute distress. HEAD: Normal with no signs of trauma. EYES: Pupils equal, round and reactive to light, extraocular movements intact EARS, NOSE, THROAT:Dry mucous membranes. LUNGS: Breath sounds equal, clear to auscultation bilaterally. No wheezes, and no crackles. No accessory muscle use. HEART: Regular rate and rhythm, normal S1 and S2 3/6 systolic murmur best heard at RUSB ABDOMEN: Soft,non tender, not distended, normoactive bowel sounds, no guarding, no rebound. MUSCULOSKELETAL: Normal range of motion at all joints. No bony deformities or tenderness. No CVA tenderness. UPPER EXTREMITIES: warm, well-perfused. No cyanosis. No clubbing. No peripheral edema. LOWER EXTREMITIES: warm, well-perfused. No calf tenderness. No peripheral edema. NEUROLOGICAL: Cranial nerves II-XII intact. Normal speech. PSYCHIATRIC: Cooperative. Good eye contact. Appropriate mood and affect. LABS Laboratory Results - last 24 hr 06/26/18 06/26/18 06/26/18 08:40 17:47 21:32 WBC RBC Hgb Hct MCV MCH MCHC RDW Plt Count MPV Absolute Neuts (auto) Neutrophils % Lymphocytes % Monocytes % Eosinophils % Basophils % Nucleated RBC % PT with INR INR Sodium Potassium Chloride Carbon Dioxide Anion Gap BUN Creatinine Creat Clearance w eGFR POC Glucometer 143 111 Random Glucose Calcium Phosphorus Magnesium Ferritin Total Bilirubin Direct Bilirubin AST ALT Alkaline Phosphatase Total Protein Albumin Hepatitis A IgM Ab Negative Hep Bs Antigen Negative Hep B Core IgM Ab Negative Hepatitis C Antibody <0.1 06/27/18 06/27/18 06/27/18 06:14 07:00 07:00 WBC RBC Hgb Hct MCV MCH MCHC RDW Plt Count MPV Absolute Neuts (auto) Neutrophils % Lymphocytes % Monocytes % Eosinophils % Basophils % Nucleated RBC % PT with INR INR Sodium 142 Potassium 4.0 Chloride 108 H Carbon Dioxide 28 Anion Gap 6 L BUN 4 L Creatinine 0.4 L Creat Clearance w eGFR > 60 POC Glucometer 101 Random Glucose 102 Calcium 8.6 Phosphorus 2.8 Magnesium 2.2 Ferritin Total Bilirubin Cancelled Direct Bilirubin Cancelled AST Cancelled ALT Cancelled Alkaline Phosphatase Cancelled Total Protein Cancelled Albumin Cancelled Hepatitis A IgM Ab Hep Bs Antigen Hep B Core IgM Ab Hepatitis C Antibody 06/27/18 06/27/18 06/27/18 07:00 07:00 07:00 WBC 8.9 RBC 4.36 Hgb 12.7 Hct 37.1 MCV 85.0 MCH 29.1 MCHC 34.2 RDW 12.8 Plt Count 239 MPV 7.1 L Absolute Neuts (auto) 6.5 Neutrophils % 72.9 Lymphocytes % 16.5 Monocytes % 7.8 Eosinophils % 2.4 D Basophils % 0.4 Nucleated RBC % 0 PT with INR 12.80 INR 1.13 H Sodium 143 Potassium 4.0 Chloride 108 H Carbon Dioxide 27 Anion Gap 8 BUN 4 L Creatinine 0.4 L Creat Clearance w eGFR > 60 POC Glucometer Random Glucose 100 Calcium 8.7 Phosphorus Magnesium Ferritin 106.3 Total Bilirubin 1.0 Direct Bilirubin AST 260 H ALT 398 H Alkaline Phosphatase 227 H Total Protein 6.3 L Albumin 3.2 L Hepatitis A IgM Ab Hep Bs Antigen Hep B Core IgM Ab Hepatitis C Antibody HOSPITAL COURSE: Date of Admission:06/26/18 Date of Discharge: 06/27/18 53F with no PMH presented with nausea vomiting and abdominal pain. Placed on observation as patient was found to have elevated LFTs. Seen by GI LFTs trended but not really improving. Patient had labs sent for viral hepatitis and autoimmune hepatitis which are pending and can be followed as an outpatient. She was volume depleted and hydrated with IVF Patient can be discharged with follow up. Given follow up with resident clinic and [facility] as she does not have insurance Minutes to complete discharge: 35 Discharge Summary Reason For Visit: ABD PAIN/VOMITING Current Active Problems Abdominal pain (Acute) Nausea (Acute) Transaminitis (Acute) Vomiting (Acute) Condition: Stable - Instructions Diet, Activity, Other Instructions: you were observed because of the abdominal pain nausea and vomiting. You liver enzymes were found to be elevated. You must follow up with a doctor. You can call [facility] at [address] [place] [address] . Please call for an appointment and they will be able to treat you and refer you to the doctors you need to see. You will pay based on your income. You will get a decent discount. You must see a healthcare economics manager. You need a primary care doctor. You can come see me Dr. Jacobo at [address] [place] [address] call [phone] for an appointment. I only see patients on from 1-430pm. If you would like to pay you can see Dr. Brambila as well. you have labs that were sent out that will be back in a couple of weeks. If you have worsening nausea vomiting fever chills chest pain or shortness of breath go to the nearest emergency room. usted fue observado debido al dolor abdominal, nuseas y vmitos. Se encontr que las enzimas hepticas estn elevadas. Debe hacer un seguimiento con un mdico. Puede llamar a [facility] en [address] [place], [place] [address]e [facility] [phone]. Llame para programar yesica charli y ellos podrn tratarlo y referirlo a los doctores que necesita janelle. Pagar segn sarah ingresos. Obtendrs un descuento decente. Debes janelle a un gastroenterlogo. Necesita un mdico de atencin primaria. Puede venir a verme al Dr. Jacobo a [address] [place] [address] llame al [phone] para programar yesica charli. Solo veo pacientes los jueves de 1-430 p.m. Si desea margoth harp puede janelle al Dr. Brambila. tienes laboratorios enviados que volvern en un par de semanas. Si tiene nuseas, vmitos, fiebre, escalofros, dolor en el pecho o dificultad para respirar, dirjase a la desiree de emergencias ms tasha. Disposition: HOME - Home Medications Comprehensive Discharge Medication List: Ambulatory Orders NK [No Known Home Medication] 06/26/18 This patient is new to me today: No Emergency Visit: Yes ED Registration Date: 06/26/18 Care time: The patient presented to the Emergency Department on the above date and was hospitalized for further evaluation of their emergent condition. Critical Care patient: No - Discharge Referral Referred to [facility] Med [facility].: No
--- NOTE | 2018-06-27 10:23 | PN ---
Teaching Attending Note Name of Resident: Diaz Jacobo ATTENDING PHYSICIAN STATEMENT I saw and evaluated the patient. I reviewed the resident's note and discussed the case with the resident. I agree with the resident's findings and plan as documented. SUBJECTIVE: Patient has no complaints. OBJECTIVE: Vital Signs Period Temp Pulse Resp BP Sys/Arnold Pulse Ox Last 24 Hr 98 F-99.3 F 78-98 18-20 124-149/62-87 97-98 HEART: S1S2, RRR LUNGS: Clear ABDOMEN: Soft, non-tender, non-distended, normal BS EXTREMITIES: No edema Laboratory Results - last 24 hr 06/26/18 06/26/18 06/26/18 08:40 17:47 21:32 WBC RBC Hgb Hct MCV MCH MCHC RDW Plt Count MPV Absolute Neuts (auto) Neutrophils % Lymphocytes % Monocytes % Eosinophils % Basophils % Nucleated RBC % PT with INR INR Sodium Potassium Chloride Carbon Dioxide Anion Gap BUN Creatinine Creat Clearance w eGFR POC Glucometer 143 111 Random Glucose Calcium Phosphorus Magnesium Ferritin Total Bilirubin Direct Bilirubin AST ALT Alkaline Phosphatase Total Protein Albumin Hepatitis A IgM Ab Negative Hep Bs Antigen Negative Hep B Core IgM Ab Negative Hepatitis C Antibody <0.1 06/27/18 06/27/18 06/27/18 06:14 07:00 07:00 WBC RBC Hgb Hct MCV MCH MCHC RDW Plt Count MPV Absolute Neuts (auto) Neutrophils % Lymphocytes % Monocytes % Eosinophils % Basophils % Nucleated RBC % PT with INR INR Sodium 142 Potassium 4.0 Chloride 108 H Carbon Dioxide 28 Anion Gap 6 L BUN 4 L Creatinine 0.4 L Creat Clearance w eGFR > 60 POC Glucometer 101 Random Glucose 102 Calcium 8.6 Phosphorus 2.8 Magnesium 2.2 Ferritin Total Bilirubin Cancelled Direct Bilirubin Cancelled AST Cancelled ALT Cancelled Alkaline Phosphatase Cancelled Total Protein Cancelled Albumin Cancelled Hepatitis A IgM Ab Hep Bs Antigen Hep B Core IgM Ab Hepatitis C Antibody 06/27/18 06/27/18 06/27/18 07:00 07:00 07:00 WBC 8.9 RBC 4.36 Hgb 12.7 Hct 37.1 MCV 85.0 MCH 29.1 MCHC 34.2 RDW 12.8 Plt Count 239 MPV 7.1 L Absolute Neuts (auto) 6.5 Neutrophils % 72.9 Lymphocytes % 16.5 Monocytes % 7.8 Eosinophils % 2.4 D Basophils % 0.4 Nucleated RBC % 0 PT with INR 12.80 INR 1.13 H Sodium 143 Potassium 4.0 Chloride 108 H Carbon Dioxide 27 Anion Gap 8 BUN 4 L Creatinine 0.4 L Creat Clearance w eGFR > 60 POC Glucometer Random Glucose 100 Calcium 8.7 Phosphorus Magnesium Ferritin 106.3 Total Bilirubin 1.0 Direct Bilirubin AST 260 H ALT 398 H Alkaline Phosphatase 227 H Total Protein 6.3 L Albumin 3.2 L Hepatitis A IgM Ab Hep Bs Antigen Hep B Core IgM Ab Hepatitis C Antibody Current Medications Generic Name Dose Route Start Last Admin Trade Name Freq PRN Reason Stop Dose Admin Heparin Sodium (Porcine) 5,000 unit 06/26/18 10:00 06/27/18 05:35 Heparin - SQ Not Given TID [facility] Sodium Chloride 1,000 mls @ 100 mls/hr 06/26/18 08:15 06/27/18 09:44 Normal Saline - IV Not Given ASDIR MAYUR Ibuprofen 400 mg 06/26/18 11:55 06/27/18 04:34 Motrin - PO 400 mg Q6H PRN Administration pain or fever Ondansetron HCl 4 mg 06/26/18 08:06 Zofran Injection IVPUSH Q6H PRN NAUSEA Pantoprazole Sodium 40 mg 06/26/18 10:00 06/27/18 09:44 Protonix Iv IVPUSH 40 mg DAILY MAYUR Administration ASSESSMENT AND PLAN: This is a 53 year old woman with a history of cholecystectomy who presented to the ED with epigastric pain, nausea and vomiting. 1. Epigastric abdominal pain with nausea, vomiting, hepatic transaminitis, elevated total bili and alk phos - No evidence of pancreatitis, biliary ductal dilatation - Tolerating clear liquids - advance as tolerated - Discontinue IV fluid - Continue Protonix, Zofran as needed - Acute hepatitis panel negative - Ok for discharge home with outpatient GI follow up for further work up of abnormal LFTs
[2018-06-28 06:06] LABS: IGA IMMUNOGLOBULIN 271 mg/dL (87-352); SERUM IRON SATURATION 54 % (15-55); TOTAL IRON BINDING CAPACITY 264 ug/dL (250-450); UIBC 121 ug/dL (131-425)
[2018-06-28 14:16] LABS: GLIADIN ANTIBODY IGA 7 units (0-19); GLIADIN ANTIBODY IGG 2 units (0-19); TRANSGLUTAMINASE IGA < 2 U/mL (0-3)
== END 2018-06-27 12:04 | disposition home or self-care (01) ==
LOC: JER → JERBED 07:24 → J5S 09:30
PROVIDERS: ADMIT Internal Medicine; ATTEND Internal Medicine
PROC: 3E033GC Introduction of Other Therapeutic Substance into Peripheral Vein, Percutaneous Approach (ICD-10-PCS; principal; 2018-06-26)
DX: R10.13 Epigastric pain (principal); R74.0 Nonspecific elevation of levels of transaminase and lactic acid dehydrogenase [LDH]; R74.8 Abnormal levels of other serum enzymes; R11.2 Nausea with vomiting, unspecified; R73.9 Hyperglycemia, unspecified; D25.9 Leiomyoma of uterus, unspecified; Z90.49 Acquired absence of other specified parts of digestive tract
CPT/HCPCS: 36415; 74177-TC; 76705-TC; 80048; 80053; 80074; 80076; 81003; 81015; 82728; 82784; 82962; 83036; 83516; 83540; 83550; 83690; 83735; 84100; 84484; 85025; 85610; 86850; 86900; 86901; 87086; 93005; 93010; 96374; 99285-25; G0378; J0131; J7030

== ENCOUNTER 2019-02-20 23:01 | Emergency (ER) | payer SELFPAY ==
[2019-02-20 23:33] VITALS: BP 117/68; PULSE 70; TEMP 98.2; BMI 25.2
--- NOTE | 2019-02-21 00:19 | PDOC ---
History of Present Illness - General Chief Complaint: Nasal Bleeding Stated Complaint: NOSE BLEEDS Time Seen by Provider: 02/21/19 00:04 History Source: Patient Exam Limitations: No Limitations - History of Present Illness Initial Comments: 02/21/19 00:20 Patient is a 53 year old female with history of cholelithiasis s/p cholecystectomy, presents with complaint of nosebleeding. She states that nosebleeding has been occuring daily for the past three days. This evening, epistaxis began while she was sleeping, and lasted approx. 30 minutes (ending approx. 9:45). She states that she last had epistaxis 8 years ago, which resolved spontaneously. She endorses using three tissues for the bleeding before it resolved. She denies any foreign objects within her nose. She denies subjective fevers, chills, shortness of breath, chest pain, palpitations, abdominal pain, nausea, vomiting. Patient denies taking any NSAIDs, aspirin, or blood thinners. Endorses that she currently takes no home medications. Timing/Duration: intermittent Past History - Past Medical History Allergies/Adverse Reactions: Allergies Allergy/AdvReac Type Severity Reaction Status Date / Time No Known Allergies Allergy Verified 02/20/19 23:33 Home Medications: Ambulatory Orders NK [No Known Home Medication] 06/26/18 COPD: No Thyroid Disease: No - Suicide/Smoking/Psychosocial Hx Smoking History: Never smoked Have you smoked in the past 12 months: No Information on smoking cessation initiated: No Hx Alcohol Use: No Drug/Substance Use Hx: No Substance Use Type: None Review of Systems - Review of Systems Able to Perform ROS?: Yes Constitutional: No: Chills, Diaphoresis, Fever HEENTM: Yes: Other (nose bleed). No: Recent change in vision, Throat Pain, Throat Swelling, Difficulty Swallowing Respiratory: No: Cough, Orthopnea, Shortness of Breath, Stridor, Wheezing, Hemoptysis Cardiac (ROS): No: Chest Pain, Lightheadedness, Palpitations ABD/GI: No: Abdominal Distended, Diarrhea, Difficulty Swallowing, Abdominal cramping Neurological: No: Headache, Paresthesia, Weakness, Unsteady Gait *Physical Exam - Vital Signs Last Vital Signs Temp Pulse Resp BP Pulse Ox 98.2 F 70 18 117/68 100 02/20/19 23:30 02/20/19 23:30 02/20/19 23:30 02/20/19 23:30 02/20/19 23:30 - Physical Exam General Appearance: Yes: Nourished, Appropriately Dressed. No: Apparent Distress HEENT: positive: EOMI, TRISTIAN, Other (Nasal turbinates erythematous. No active bleeding. Several 1mm blood clots noted along left nasal septum. ). negative: Scleral Icterus (R), Scleral Icterus (L), Pharyngeal Erythema, Tonsillar Exudate Neck: positive: Trachea midline, Supple. negative: Lymphadenopathy (R), Lymphadenopathy (L) Respiratory/Chest: positive: Lungs Clear, Normal Breath Sounds. negative: Respiratory Distress, Crackles, Rales, Rhonchi, Stridor, Wheezing Cardiovascular: positive: Regular Rhythm, Regular Rate, S1, S2. negative: Murmur Gastrointestinal/Abdominal: positive: Normal Bowel Sounds, Soft. 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 Currently no active nasal bleeding Will treat with Afrin nasal spray, monitor for any further bleeding. 02/21/19 01:23 No further nasal bleeding noted. Will discharge patient home. Follow up with primary care physician, and ENT. All questions, concerns addressed and answered. Patient in agreement with plan. *DC/Admit/Observation/Transfer Diagnosis at time of Disposition: Epistaxis - Discharge Dispostion Disposition: HOME Condition at time of disposition: Stable Decision to Admit order: No - Referrals Referrals: Mina Guerrero MD [Staff Physician] - - Patient Instructions Additional Instructions: You were seen i the Emergency department for nasal bleeding. YOu were treated with medication to reduce the bleeding. There has been no bleeding during observation, and you are being discharged home. Follow up with your primary care physician within one - two days of discharge. Follow up with ENT Dr. Guerrero tomorrow. A referral has been provided. Return to the Emergency Department if you experience worsening symptoms, subjective fevers, chills, shortness of breath, chest pain, palpitations, abdominal pain, nausea, vomiting, lightheadedness, fall, loss of consciousness, any trauma. - Post Discharge Activity
[2019-02-21] MEDS ORDERED: OXYMETAZOLINE 0.05% NASAL SOLUTION 15 ML BOTTLE NS ONE (00:43)
--- NOTE | 2019-02-21 00:59 | PDOC ---
Attending Attestation - Resident Resident Name: Kolton Pizano - ED Attending Attestation I have performed the following: I have examined & evaluated the patient, The case was reviewed & discussed with the resident, I agree w/resident's findings & plan, Exceptions are as noted - HPI HPI: 02/21/19 00:55 53F pmh cholecystectomy here with 3 days of recurrent epistaxis. Pt states that it occurs over night and resolves spontaneously after going through 3 tissues. She does not hold pressure. Denies recent trauma, AC - Physicial Exam PE: 02/21/19 00:57 Hemostatic Agree with exam as documented by resident - Medical Decision Making 02/21/19 00:57 Hemostatic, spontaneously resolved Denies external trauma, digital trauma. given timing of occurrence, consider mucosal drying overnight leading to a friable surface F/u ENT
== END 2019-02-21 01:30 | disposition home or self-care (01) ==
LOC: JER 23:01
PROC: 093K7ZZ Control Bleeding in Nasal Mucosa and Soft Tissue, Via Natural or Artificial Opening (ICD-10-PCS; principal; 2019-02-20)
DX: R04.0 Epistaxis (principal)
CPT/HCPCS: 99281-25